=== PATIENT | male | born 1935 | race Caucasian/White ===

== ENCOUNTER 2019-09-24 11:34 | Outpatient (CLI) | payer OTHER ==
[~2019-09-24 11:34] MED LIST: ASA-EC81 MG; DULCOLAX5 MG; HYDROCHLOROTHIA25 MG; MECLIZINE HCL25 MG; NORVASC5 MG; TAMS0.4C; TERAZOSIN HCL5 MG; ZESTRIL20 MG; ZOCOR20 MG
== END 2019-09-24 11:36 | disposition home or self-care (01) ==
LOC: RAD 11:34
DX: J44.1 Chronic obstructive pulmonary disease with (acute) exacerbation (principal)

== ENCOUNTER → 2022-05-31 | Emergency (ER) | payer OTHER ==
[~2022-05-31] VITALS: Ht 170.2 cm; Wt 65.8 kg
[~2022-05-31] MED LIST changes: +AMLODIPINE-OLM1 EAC2 PO; +ATORVASTATIN CA40 MG PO; +NORFLEX100MG PO; +TAMS0.4C PO; +TERAZOSIN HCL5 MG PO; +ZESTRIL40 M1 PO
== END | disposition home or self-care (01) ==
LOC: ER
DX: R25.2 Cramp and spasm (principal); I10 Essential (primary) hypertension; Z91.09 Other allergy status, other than to drugs and biological substances

== ENCOUNTER 2022-10-25 09:03 | Outpatient (CLI) | payer OTHER | END 2022-10-25 09:06 | disposition home or self-care (01) | LOC: SONOGRAMA 09:03 | PROVIDERS: ATTEND Internal Medicine | DX: R73.09 Other abnormal glucose (principal); N18.2 Chronic kidney disease, stage 2 (mild); Z79.82 Long term (current) use of aspirin; N52.01 Erectile dysfunction due to arterial insufficiency; R97.20 Elevated prostate specific antigen [PSA]; N40.0 Benign prostatic hyperplasia without lower urinary tract symptoms; I11.9 Hypertensive heart disease without heart failure; E78.00 Pure hypercholesterolemia, unspecified ==